=== PATIENT | female | born 1950 | race Caucasian/White ===

== ENCOUNTER → 2017-09-18 | Outpatient (CLI) | payer MEDICARE, OTHER ==
--- NOTE | 2017-09-18 17:46 | WOMENS IMAGING REPORT ---
EXAM DESCRIPTION: BILAT SCREENING MAMMO W/CAD COMPLETED DATE/TIME: 09/18/2017 3:28 pm REASON FOR STUDY: ROUTINE SCREENING; Z12.31 Z12.31 ENCNTR SCREEN MAMMOGRAM FOR MALIGNANT NEOPLASM O F [place] COMPARISON: Multiple since 2009 TECHNIQUE: Standard craniocaudal and mediolateral oblique views of each breast recorded using digita l acquisition. Additional "push-back" craniocaudal and mediolateral oblique images acquired. LIMITATIONS: None. FINDINGS: IMPLANTS: Bilateral subpectoral implants. Findings present which are benign by mammographic criteria. No suspicious masses, calcifications or architectural distortion. Read with the assistance of CAD. .[facility] - R2 Cenova Version 1.3 .[facility] - R2 Cenova Version 1.3 .[facility] - R2 Cenova Version 2.4 .[facility] - R2 Cenova Version 2.4 .[facility] - R2 Music G[employer]her Version 9.2 Benign mammographic findings may include one or more of the following: Smooth masses, popcorn/rim/co arse calcifications, asymmetries, post-procedure changes, and lesions with long-standing stability. IMPRESSION: BENIGN MAMMOGRAPHIC FINDINGS. BIRADS 2 BREAST DENSITY: c. The breasts are heterogeneously dense, which may obscure small masses. BIRAD: 2 BENIGN FINDING(S) RECOMMENDATION: ROUTINE SCREENING Please consider bilateral screening tomosynthesis in August 2018, given heterogeneously dense tissu e COMMENT: The patient has been notified of the results by letter per SA requirements. Additional no tification policies are in place for contacting patient with suspicious or incomplete findings. Quality ID #[id number]: The [employer] recommends an annual screening mammogram for women aged 40 years or over. This facility utilizes a reminder system to ensure that all patients receive reminder letters, and/or direct phone calls for appointments. This includes reminders for routine scr eening mammograms, diagnostic mammograms, or other Breast Imaging Interventions when appropriate. Th is patient will be placed in the appropriate reminder system. The [employer] (A[employer]) has developed recommendations for screening MRI of the breast s in certain patient populations, to be used in conjunction with mammography. Breast MRI surveillanc e may be appropriate for women with more than 20% lifetime risk of developing breast cancer as deter mined by genetic testing, significant family history of the disease, or history of mantle radiation f or Hodgkins Disease. ACR Practice Guidelines 2008. TECHNICAL DOCUMENTATION: FINDING NUMBER: (1) ASSESSMENT: (1) JOB ID: [id number] [employer]- All Rights Reserved
== END ==
LOC: WI 14:54
PROVIDERS: ATTEND Family Medicine
DX: Z12.31 Encounter for screening mammogram for malignant neoplasm of breast (principal); Z98.82 Breast implant status
CPT/HCPCS: 77067; G0202

== ENCOUNTER → 2018-12-18 | Outpatient (CLI) | payer MEDICARE, OTHER ==
--- NOTE | 2018-12-18 16:28 | WOMENS IMAGING REPORT ---
EXAM DESCRIPTION: BILAT SCREENING MAMMO W/CAD COMPLETED DATE/TIME: 12/18/2018 2:59 pm REASON FOR STUDY: Z12.31 ROUTINE BILATERAL SCREENING Z12.31 ENCNTR SCREEN MAMMOGRAM FOR MALIGNANT N EOPLASM OF [place] COMPARISON: Multiple since 2009 TECHNIQUE: Standard craniocaudal and mediolateral oblique views of each breast recorded using digita l acquisition. Additional "push-back" craniocaudal and mediolateral oblique images acquired. LIMITATIONS: None. FINDINGS: IMPLANTS: Bilateral subpectoral implants. Findings present which are benign by mammographic criteria. No suspicious masses, calcifications or architectural distortion. Read with the assistance of CAD. .[facility] - R2 Cenova Version 1.3 .[facility] - R2 Cenova Version 2.1 .[facility] - R2 Cenova Version 2.4 .[facility] [place] R2 Cenova Version 2.4 .[facility] - R2 [employer] Version 9.2 Benign mammographic findings may include one or more of the following: Smooth masses, popcorn/rim/co arse calcifications, asymmetries, post-procedure changes, and lesions with long-standing stability. IMPRESSION: BENIGN MAMMOGRAPHIC FINDINGS. BIRADS 2 BREAST DENSITY: c. The breasts are heterogeneously dense, which may obscure small masses. BIRAD: 2 BENIGN FINDING(S) RECOMMENDATION: ROUTINE SCREENING COMMENT: The patient has been notified of the results by letter per SA requirements. Additional no tification policies are in place for contacting patient with suspicious or incomplete findings. Quality ID #[id number]: The [employer] recommends an annual screening mammogram for women aged 40 years or over. This facility utilizes a reminder system to ensure that all patients receive reminder letters, and/or direct phone calls for appointments. This includes reminders for routine scr eening mammograms, diagnostic mammograms, or other Breast Imaging Interventions when appropriate. Th is patient will be placed in the appropriate reminder system. The [employer] ([employer]) has developed recommendations for screening MRI of the breast s in certain patient populations, to be used in conjunction with mammography. Breast MRI surveillanc e may be appropriate for women with more than 20% lifetime risk of developing breast cancer as deter mined by genetic testing, significant family history of the disease, or history of mantle radiation f or Hodgkins Disease. ACR Practice Guidelines 2008. TECHNICAL DOCUMENTATION: FINDING NUMBER: (1) ASSESSMENT: (1) JOB ID: [id number] [employer]- All Rights Reserved Reading location - IP/workstation name: [email or web address]
== END ==
LOC: WI 14:38
PROVIDERS: ATTEND Family Medicine
DX: Z12.31 Encounter for screening mammogram for malignant neoplasm of breast (principal)
CPT/HCPCS: 77067